=== PATIENT | male | born 1995 | race Caucasian/White ===

== ENCOUNTER 2016-04-07 20:53 | Emergency (ER) | payer SELFPAY ==
[2016-04-07 20:55] VITALS: BP 160/74; PULSE 102; RESP 16; TEMP 98; O2SAT 97
== END 2016-04-07 21:10 | disposition left against medical advice (07) ==
LOC: NED 20:53
DX: J00 Acute nasopharyngitis [common cold] (principal)
CPT/HCPCS: 99281